=== PATIENT | female | born 1985 ===

== ENCOUNTER → 2018-06-14 18:02 | Outpatient (REF) | payer OTHER, SELFPAY ==
[2018-06-18 13:45] LABS: QuantiFERON TB NEGATIVE (Negative)
[2018-06-19 13:40] LABS: Rapid Plasma Reagin NON-REACTIVE
== END ==
LOC: LAB 18:02
PROVIDERS: Visit Provider Family Medicine Adult Medicine
DX: Z00.00 Encounter for general adult medical examination without abnormal findings (principal)
CPT/HCPCS: 86480; 86592; 87591